=== PATIENT | female | born 1955 | race Caucasian/White ===

== ENCOUNTER 2017-03-07 16:41 | Outpatient (CLI) | payer BC, OTHER | END 2017-03-07 16:42 | disposition home or self-care (01) | LOC: BICMAMMO 16:41 | PROVIDERS: ATTEND Family Medicine | DX: Z12.31 Encounter for screening mammogram for malignant neoplasm of breast (principal); R92.1 Mammographic calcification found on diagnostic imaging of breast | CPT/HCPCS: 77063; 77067 ==

== ENCOUNTER 2018-03-10 15:09 | Outpatient (CLI) | payer BC, OTHER | END 2018-03-10 15:10 | disposition home or self-care (01) | LOC: BICMAMMO 15:09 | PROVIDERS: ATTEND Family Medicine | DX: Z12.31 Encounter for screening mammogram for malignant neoplasm of breast (principal) | CPT/HCPCS: 77063; 77067 ==

== ENCOUNTER 2019-03-16 15:53 | Outpatient (CLI) | payer BC, OTHER ==
--- NOTE | 2019-03-16 16:18 | MMO ---
Bilateral MAMMO Bilat Screen [facility]. CLINICAL HISTORY: Patient is 64 years old and is seen for screening. The patient has a history of right Excisional Biopsy at age 27 - benign. VIEWS: The views performed were: . FILMS COMPARED: The present examination has been compared to prior imaging studies performed at [facility] on 02/18/2015, 03/04/2016, 03/07/2017 and 03/10/2018. This study has been interpreted with the assistance of computer-aided detection. MAMMOGRAM FINDINGS: The breasts are heterogeneously dense, which could obscure a lesion on mammography. Finding 1: There are stable benign appearing calcifications seen in both breasts. Finding 2: There is a stable focal asymmetry seen in the inner region of the right breast. There are no suspicious masses, suspicious calcifications, or new areas of architectural distortion. IMPRESSION: THERE IS NO MAMMOGRAPHIC EVIDENCE OF MALIGNANCY. A ROUTINE FOLLOW-UP MAMMOGRAM IN 1 YEAR IS RECOMMENDED. THE RESULTS OF THIS EXAM WERE SENT TO THE PATIENT. ACR BI-RADS Category 2 - Benign finding MAMMOGRAPHY NOTE: 1. A negative mammogram report should not delay a biopsy if a dominant of clinically suspicious mass is present. 2. Approximately 10% to 15% of breast cancers are not detected by mammography. 3. Adenosis and dense breasts may obscure an underlying neoplasm. Reported by: ISAEL KEYES MD Electonically Signed: [id number]
== END 2019-03-16 15:54 | disposition home or self-care (01) ==
LOC: BICMAMMO 15:53
PROVIDERS: ATTEND Family Medicine
DX: Z12.31 Encounter for screening mammogram for malignant neoplasm of breast (principal); Z91.89 Other specified personal risk factors, not elsewhere classified
CPT/HCPCS: 77063; 77067

== ENCOUNTER 2019-06-05 12:35 | Outpatient (CLI) | payer BC, OTHER ==
--- NOTE | 2019-06-05 13:45 | ULT ---
BILATERAL RENAL ULTRASOUND COMPLETE: Date: 06/05/2019 HISTORY: Chronic kidney disease, Level III. COMPARISON: Abdomen CT scan dated 09/29/2006. FINDINGS: Right kidney measures 10.2 x 5.2 x 5.5 cm. Left kidney measures 9.1 x 5.1 x 5.1 cm. Bladder is essentially empty. No renal hydronephrosis or perinephric process. Focal circumscribed hyperechoic focus in the right lobe of the liver, 1.7 x 1.7 x 2.1 cm, probably a hemangioma and corresponding to a low attenuation focus in the right lobe of the liver at the time of the prior [address] IMPRESSION: 1. No renal hydronephrosis or other acute process. 2. Prior splenectomy. 3. 1.7 x 1.7 x 2.1 cm echogenic focus in the right lobe of the liver, probably corresponding to the hypodense mass in the right lobe of the liver on the prior CT scan. This would favor a benign hemangi nay. POS: RRE
== END 2019-06-05 12:36 | disposition home or self-care (01) ==
LOC: BICULT 12:35
PROVIDERS: ATTEND Internal Medicine Nephrology
DX: I12.9 Hypertensive chronic kidney disease with stage 1 through stage 4 chronic kidney disease, or unspecified chronic kidney disease (principal); N18.3 Chronic kidney disease, stage 3 (moderate); Z90.81 Acquired absence of spleen
CPT/HCPCS: 76770

== ENCOUNTER 2020-01-24 06:54 | Outpatient (CLI) | payer BC, OTHER ==
--- NOTE | 2020-01-24 09:17 | ULT ---
GALLBLADDER ULTRASOUND: Date; 01/24/2020 HISTORY: Liver hemangioma. FINDINGS: Real-time imaging of the right upper quadrant shows the gallbladder to have been removed. The common duct is in the 6-7 mm range. Liver shows an echogenic lesion within the right lobe measuring approxim ately 2.1 x 1.7 cm in size. This has an ultrasound appearance of a hemangioma. It appears to be fairl y similar to a density seen on the 09/29/2006 CT study which did not have any definitive features. The right kidney is normal in size and not obstructed. Pancreas is obscured. IMPRESSION: Echogenic area within the right lobe of the liver, most likely hemangioma. If this has not been previ ously fully characterized, CT or MRI would be suggested. POS: JYOTHI
== END 2020-01-24 06:55 | disposition home or self-care (01) ==
LOC: BICULT 06:54
PROVIDERS: ATTEND Family Medicine
DX: D18.03 Hemangioma of intra-abdominal structures (principal)
CPT/HCPCS: 76705

== ENCOUNTER 2020-03-18 09:13 | Outpatient (CLI) | payer OTHER ==
--- NOTE | 2020-03-18 09:49 | MMO ---
Bilateral MAMMO Bilat Screen [facility]. CLINICAL HISTORY: Patient is 65 years old and is seen for screening. The patient has no family history of breast cancer. The patient has no personal history of cancer. The patient has a history of right Excisional Biopsy at age 27 - benign. VIEWS: The views performed were: bilateral craniocaudal with tomosynthesis and bilateral mediolateral oblique with tomosynthesis. FILMS COMPARED: The present examination has been compared to prior imaging studies performed at [facility] on 03/04/2016, 03/07/2017, 03/10/2018 and 03/16/2019. This study has been interpreted with the assistance of computer-aided detection. MAMMOGRAM FINDINGS: There are scattered fibroglandular densities. There are benign appearing calcifications seen in both breasts. There are no suspicious masses, suspicious calcifications, or new areas of architectural distortion. IMPRESSION: THERE IS NO MAMMOGRAPHIC EVIDENCE OF MALIGNANCY. A ROUTINE FOLLOW-UP MAMMOGRAM IN 1 YEAR IS RECOMMENDED. THE RESULTS OF THIS EXAM WERE SENT TO THE PATIENT. ACR BI-RADS Category 2 - Benign finding MAMMOGRAPHY NOTE: 1. A negative mammogram report should not delay a biopsy if a dominant of clinically suspicious mass is present. 2. Approximately 10% to 15% of breast cancers are not detected by mammography. 3. Adenosis and dense breasts may obscure an underlying neoplasm. Reported by: APOLINAR MILLER MD Electonically Signed: [id number]
== END 2020-03-18 09:14 | disposition home or self-care (01) ==
LOC: BICMAMMO 09:13
PROVIDERS: ATTEND Family Medicine
DX: Z12.31 Encounter for screening mammogram for malignant neoplasm of breast (principal); Z91.89 Other specified personal risk factors, not elsewhere classified
CPT/HCPCS: 77063; 77067

== ENCOUNTER 2021-03-27 11:35 | Outpatient (CLI) | payer OTHER | END 2021-03-27 11:36 | disposition home or self-care (01) | LOC: BICMAMMO 11:35 | PROVIDERS: ATTEND Family Medicine | DX: N63.10 Unspecified lump in the right breast, unspecified quadrant (principal) | CPT/HCPCS: 19083; 77063; 77066; 77067; G0279 ==